=== PATIENT | male | born 1985 ===

== ENCOUNTER 2023-07-11 02:31 | Emergency (ER) | payer MEDICAID ==
[~2023-07-11] VITALS: Ht 175.3 cm; Wt 113.4 kg
[2023-07-11 02:52] LABS: BASOPHILS ABSOLUTE AUTO 0.02 K/mm3 (0.00-0.23); BASOPHILS PERCENT AUTO 0 % (0-2); EOSINOPHILS PERCENT AUTO 0 % (0-6); Hematocrit 43.7 % (37.0-53.0); IMMATURE GRAN ABSOLUTE AUTO 0.06 K/mm3 (0.00-0.10); IMMATURE GRAN PERCENT AUTO 1 % (0-1); LYMPHOCYTES ABSOLUTE AUTO 1.36 K/mm3 (0.84-5.20); LYMPHOCYTES PERCENT AUTO 11 % (21-46); MONOCYTES ABSOLUTE AUTO 0.95 K/mm3 (0.16-1.47); MONOCYTES PERCENT AUTO 8 % (4-13); Mean Corpuscular HGB 28.1 pg (26.0-34.0); Mean Corpuscular HGB Conc 34.3 g/dL (31.5-36.5); Mean Corpuscular Volume 82 fL (80-100); Mean Platelet Volume 10.5 fL (9.1-12.4); NEUTROPHILS PERCENT AUTO 81 % (41-73); Platelet Count 322 K/mm3 (150-400); RDW Coefficient Variation 13.3 % (11.7-14.2); RDW Standard Deviation 39.4 fL (35.1-46.3); Red Blood Cell Count 5.33 M/mm3 (4.30-5.90); White Blood Cell Count 12.49 K/mm3 (4.00-11.30)
[2023-07-11 03:11] LABS: Albumin, Blood 3.9 g/dL (3.4-5.0); Albumin/Globulin Ratio 1.1 (0.8-1.8); Bilirubin, Total 0.6 mg/dL (0.1-1.0); Bun/Creatinine Ratio 18.6 (12.0-20.0); Calcium, Blood 9.6 mg/dL (8.5-10.1); Creatinine, Blood 0.81 mg/dL (0.60-1.20); Globulin, Blood 3.7 g/dL (2.2-4.0); Potassium, Blood 3.5 mmol/L (3.5-5.5); Total Protein, Blood 7.6 g/dL (6.4-8.2)
[2023-07-11] MEDS ORDERED: NS 1,000 ML IV SCH (03:25)
[2023-07-11] MEDS ORDERED: Ondansetron HCl 2 MG / ML 2ML Vial IV ONE (03:25)
[2023-07-11 03:29] LABS: Influenza A, PCR NEGATIVE (NEGATIVE); Influenza B, PCR NEGATIVE (NEGATIVE); Resp Syncytial Virus, PCR NEGATIVE (NEGATIVE); SARS-Cov-2 (COVID-19) PCR, MMC NEGATIVE (NEGATIVE)
[2023-07-11] MEDS ORDERED: FentaNYL Citrate 50 MCG/ML 2 ML Injection IV ONE ×2 (03:30→04:45)
[2023-07-11] MEDS ORDERED: Droperidol 5 mg/2 ml Vial IV ONE (04:45)
[2023-07-11] MEDS ORDERED: Ciprofloxacin 500 MG Tab PO ONE (06:15)
[2023-07-11] MEDS ORDERED: MetroNIDAZOLE 500 MG Tab PO ONE (06:15)
[2023-07-11 06:42] LABS: Source, Urine Clean Catch
[2023-07-11 06:48] LABS: Appearance, Urine Clear (Clear); Bilirubin, Urine Neg (Neg); Blood, Urine Neg (Neg); Color, Urine Yellow (P-Yellow); Glucose Qualitative, Urine Neg (Neg); Ketones, Urine 4+ (Neg); Leukocyte Esterase, Urine Neg (Neg); Nitrite, Urine Neg (Neg); Protein, Urine 2+ (Neg); Urobilinogen, Urine 2+ (Normal); pH, Urine 6.5 (5.0-8.0)
[2023-07-11] MEDS ORDERED: RX Prepack 2 Tabs Ondansetron ODT 4MG UD ONE (06:50)
[2023-07-11] MEDS ORDERED: RX Prepack 6 Tabs Oxycodone 5mg UD ONE (06:50)
[2023-07-11] MEDS ORDERED: CIPR500 PO (06:53)
[2023-07-11] MEDS ORDERED: ONDA4ODT MM (06:53)
[2023-07-11] MEDS ORDERED: METR500 PO (06:53)
[2023-07-11 06:55] LABS: Bacteria Rare /hpf; Red Blood Cells, Urine 0-2 /hpf (0-2); Squamous Epithelial Cells Rare /hpf (Few); White Blood Cells, Urine 0-2 /hpf (0-5)
[2023-07-11 07:10] VITALS: BP 134/83
== END 2023-07-11 07:15 | disposition home or self-care (01) ==
LOC: ER 02:31
PROVIDERS: Student in an Organized Health Care Education/Training Program
DX: K52.9 Noninfective gastroenteritis and colitis, unspecified (principal); D72.829 Elevated white blood cell count, unspecified
CPT/HCPCS: 0241U; 74177; 80053; 81001; 83690; 85025; 93005; 93010; 96361; 96374-59; 96375; 96376; 99285-25; A9270; J1790; J2405; J3010; J7030; Q9967